=== PATIENT | male | born 2000 | race Caucasian/White ===

== ENCOUNTER 2023-08-17 09:32 | Outpatient (AMB) | payer OTHER, SELFPAY ==
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
[2023-08-17 11:11] VITALS: BP 112/76; PULSE 98; TEMP 36.8; O2SAT 95; BMI 35.8
== END 2023-08-17 11:28 | disposition home or self-care (01) ==
PROVIDERS: Visit Provider Physician Assistant
DX: R51.9 Headache, unspecified (principal); S16.1XXA Strain of muscle, fascia and tendon at neck level, initial encounter
CPT/HCPCS: 99051; 99203